=== PATIENT | female | born 1965 | race Caucasian/White ===

== ENCOUNTER 2022-01-06 10:27 | Observation (INO) ==
--- NOTE | 2022-01-06 10:42 | DR.CP ---
HPI Time Seen Time Seen by Provider: 01/06/22 10:42 Complaint Chief Complaint Doctor Comments: 56 y/o female presents with chest pain. Started in the middle of the night. Located lower substernal/epigastric region. Pain is sharp, stabbing, radiates to the back. Nothing makes it better. Nothing makes iot worse. No prior h/o cardiac disease. Does have h/o HTN. Pain is severe. No associated nausea, vomiting, diaphoresis. Feels some dyspnea. Reviewed Nurses Notes Review: Yes Source History Provided: Patient Mode of Arrival Mode of Arrival: Ambulatory PMH PMH Past Medical History: Dyslipidemia and Hypertension Past Surgical History: Yes Surgical History: Cholecystectomy and Hysterectomy Social History Do you use any recreational Drugs:: No ROS Review of Systems Constitutional: No Symptoms Reported Eyes: No Symptoms Reported ENTM: No Symptoms Reported Respiratoy: No Symptoms Reported Cardiovascular: See HPI Gastrointestinal/Abdominal: No Symptoms Reported Genitourinary: No Symptoms Reported Neurological: No Symptoms Reported Musculoskeletal: No Symptoms Reported Integumentary: No Symptoms Reported Hematologic/Lymphatic: No Symptoms Reported Psychiatric: No Symptoms Reported All Other Systems: Reviewed and Negative PE Vitals Vitals: Temperature 97.0 F Pulse Rate 69 Respiratory Rate 8 Blood Pressure [Left Arm] 163/74 Blood Pressure 151/83 O2 Sat by Pulse Oximetry 99 General General Appearance: Alert, Anxious and In Distress Eyes Eye exam: PERRL and EOMI Chest Chest Inspection: Normal Inspection Respiratory Respiratory Exam: Normal Lung Sounds Bilat; negative Accessory Muscle Use or Res piratory Distress Cardiovascular Cardiovascular Exam: Regular Rate, Normal Rhythm and Normal Heart Sounds Abdominal Exam Abdominal Exam: Normal Inspection, Soft and Tenderness (epigastric region, not severe , no guarding or rebound.) Extremities Extremities Exam: Normal Inspection, Full ROM and Other (good distal pulses); negative Edema Back Back Exam: Normal Inspection Neurologic Neurological Exam: Alert, Oriented X3 and CN II-XII Intact; negative Motor Sensory Deficit Psychiatric Psychiatric Exam: Anxious Skin Skin Exam: Warm and Dry MDM Differential Diagnosis Differential Diagnosis: Angina, Aortic Dissection, Chest Wall Pain, Cholelithasis, Myocardial Infarction and Pulmonary Embolus COURSE Treatment Treatment: Pt with lower chest/epigastric pain. W/u initiated. Pt given ASA, NTG without good effect. Pt given IV demerol/zofran. EKG without acute ischemic changes. Labs overall acceptable, except for d-dimer. Will pursue CTA of the chest to r/o PE, dissection. 1243 - pt feeling markedly better after IV analgesia. CTA shows bilateral lower lobe PEs. Recommend admission, will start IV heparin drip. ROR Labs Reviewed Laboratory Results Reviewed?: Yes Result Diagrams: 01/06/22 10:42 01/06/22 10:42 Laboratory: WBC 9.7 X10^3/uL (3.6-10.0) 01/06/22 10:42 RBC 4.44 X10^6/uL (3.5-5.4) 01/06/22 10:42 Hgb 14.0 g/dL (12.0-16.0) 01/06/22 10:42 Hct 40.6 % (36.0-47.0) 01/06/22 10:42 MCV 91.4 fL (80.0-100.0) 01/06/22 10:42 MCH 31.6 pg (27.0-34.0) 01/06/22 10:42 MCHC 34.6 g/dL (33.0-35.0) 01/06/22 10:42 RDW 13.8 % (11.6-16.5) 01/06/22 10:42 Plt Count 279 X10^3/uL (150.0-450.0) 01/06/22 10:42 MPV 6.9 fL (7.4-11.0) L 01/06/22 10:42 Neut % (Auto) 67.6 % (42.0-75.0) 01/06/22 10:42 Lymph % (Auto) 25.2 % (21.0-51.0) 01/06/22 10:42 Hitchcock % (Auto) 5.9 % (0.0-13.0) 01/06/22 10:42 Eos % (Auto) 0.8 % (0.9-2.9) L 01/06/22 10:42 Baso % (Auto) 0.5 % (0.2-1.0) 01/06/22 10:42 Neut # (Auto) 6.6 x10^3/uL (2.2-4.8) H 01/06/22 10:42 Lymph # (Auto) 2.5 X10^3/uL (1.3-2.9) 01/06/22 10:42 Hitchcock # (Auto) 0.6 x10^3/uL (0.3-0.8) 01/06/22 10:42 Eos # (Auto) 0.1 x10^3/uL (0.0-0.2) 01/06/22 10:42 Baso # (Auto) 0.1 X10^3/uL (0.0-0.1) 01/06/22 10:42 Absolute Nucleated RBC 0.0 /100WBC 01/06/22 10:42 PT 12.5 SECONDS (11.8-14.3) 01/06/22 10:42 INR Target Range - 01/06/22 10:42 INR 0.96 (0.8-1.3) 01/06/22 10:42 APTT 21.7 SECONDS (22.9-36.5) L 01/06/22 10:42 PTT Comment - 01/06/22 10:42 D-Dimer 1.82 ug/ml (0.0-0.57) H 01/06/22 10:42 Sodium 141 mmol/L (136-145) 01/06/22 10:42 Corrected Sodium 141 mmol/L (136-145) 01/06/22 10:42 Potassium 3.4 mmol/L (3.5-5.1) L 01/06/22 10:42 Chloride 103 mmol/L (98-107) 01/06/22 10:42 Carbon Dioxide 29.7 mmol/L (21-32) 01/06/22 10:42 BUN 12 mg/dL (7-18) 01/06/22 10:42 Creatinine 0.95 mg/dL (0.55-1.02) 01/06/22 10:42 Est GFR (MDRD) Af Amer > 60 (>60) 01/06/22 10:42 Est GFR (MDRD) Non-Af > 60 (>60) 01/06/22 10:42 Glucose 118 mg/dL (65-99) H 01/06/22 10:42 Calcium 9.3 mg/dL (8.5-10.1) 01/06/22 10:42 Corrected Calcium TNP 01/06/22 10:42 Total Bilirubin 0.50 mg/dL (0.2-1.0) 01/06/22 10:42 AST 60 Units/L (15-37) H 01/06/22 10:42 ALT 66 Units/L (12-78) 01/06/22 10:42 Alkaline Phosphatase 76 Units/L (46-116) 01/06/22 10:42 Creatine Kinase 46 Units/L (26-192) 01/06/22 10:42 Troponin I High Sens 4.5 ng/L (4.0-60.0) 01/06/22 10:42 Total Protein 6.9 g/dL (6.4-8.2) 01/06/22 10:42 Albumin 3.4 g/dL (3.4-5.0) 01/06/22 10:42 Globulin 3.5 g/dL (2.5-4.5) 01/06/22 10:42 Albumin/Globulin Ratio 1.0 Ratio (1.1-2.1) L 01/06/22 10:42 SARS-CoV-2 (PCR) Negative (NEGATIVE) 01/06/22 12:26 Labs acceptable except for elevated d-dimer. EKG Rate: 86 Laura: Normal Rhythm: NSR Block: None Hypertrophy: None ST: Normal Opioid Opioid Risk Tool Age (Cristopher box if 16-45): No History of Preadolescent Sexual Abuse: No Total: 0 Total Score Risk Category: Low Risk Copyright: Ean FLORES predicting aberrant behaviors Discharge Plan Diagnosis Discharge Problem: Bilateral pulmonary embolism Discharge Plan Patient Disposition: 09 ADMITTED INPATIENT Condition: Stable Prescriptions: No Action potassium chloride 10 mEq tablet extended release 1 tab PO QDAY omeprazole 40 mg capsule,delayed release(DR/EC) 1 cap PO QDAY losartan-hydrochlorothiazide 100-25 mg tablet 1 tab PO QDAY estradiol 1 mg tablet 1 tab PO QDAY ezetimibe [Zetia] 10 mg Tablet 10 mg PO DAILY Probiotic 10 billion cell Capsule 10 cell PO DAILY Probiotic 3 billion cell Capsule 3,000 mmu cells PO QDAY Rx Instructions: administer with a meal Health Concerns: Post Hospitalization: new medications and changes needed to prevent readmission or further decline. Pt educated and given instructions on all concerns. Plan of Treatment: Continue with present treatment and follow up plan. Pt is to keep follow up appointment as instructed and take medications as ordered. Orders to Discharge Patient Discharge Orders: Transfer (Routine); Ordered 01/06/22 Ordered By: Lencho Villa Follow ups/Referrals Follow ups/Referrals: [facility],None [Primary Care Provider] - 3 days
[2022-01-06 10:43] VITALS: BMI 27.4
[2022-01-06] MEDS ORDERED: ASPIRIN 81 MG CHEWTAB ONE (10:46)
[2022-01-06] MEDS ORDERED: NITROSTAT ONE (10:46)
[2022-01-06] MEDS ORDERED: NITROSTAT SL PRN (10:50)
[2022-01-06 10:53] LABS: BASOPHILS # (AUTO) 0.1 X10^3/uL (0.0-0.1); BASOPHILS % (AUTO) 0.5 % (0.2-1.0); EOSINOPHILS # (AUTO) 0.1 x10^3/uL (0.0-0.2); EOSINOPHILS % (AUTO) 0.8 % (0.9-2.9); HEMATOCRIT 40.6 % (36.0-47.0); LYMPHOCYTES # (AUTO) 2.5 X10^3/uL (1.3-2.9); LYMPHOCYTES % (AUTO) 25.2 % (21.0-51.0); MEAN CORPUSCULAR HEMOGLOBIN 31.6 pg (27.0-34.0); MEAN CORPUSCULAR HGB CONC 34.6 g/dL (33.0-35.0); MEAN CORPUSCULAR VOLUME 91.4 fL (80.0-100.0); MEAN PLATELET VOLUME 6.9 fL (7.4-11.0); MONOCYTES # (AUTO) 0.6 x10^3/uL (0.3-0.8); MONOCYTES % (AUTO) 5.9 % (0.0-13.0); NEUTROPHILS # (AUTO) 6.6 x10^3/uL (2.2-4.8); NEUTROPHILS % (AUTO) 67.6 % (42.0-75.0); RED BLOOD COUNT 4.44 X10^6/uL (3.5-5.4); RED CELL DISTRIBUTION WIDTH 13.8 % (11.6-16.5); WHITE BLOOD COUNT 9.7 X10^3/uL (3.6-10.0)
[2022-01-06] MEDS ORDERED: ZOFRAN INJ 4 MG VIAL ONE ×2 (11:03→22:50)
[2022-01-06] MEDS ORDERED: DEMEROL INJ ONE (11:03)
[2022-01-06 11:10] LABS: ALANINE AMINOTRANSFERASE 66 Units/L (12-78); ALBUMIN 3.4 g/dL (3.4-5.0); ALKALINE PHOSPHATASE 76 Units/L (46-116); ASPARTATE AMINO TRANSFERASE 60 Units/L (15-37); BLOOD UREA NITROGEN 12 mg/dL (7-18); CALCIUM 9.3 mg/dL (8.5-10.1); CARBON DIOXIDE 29.7 mmol/L (21-32); CHLORIDE 103 mmol/L (98-107); COR NA(FOR HYPERGLY) 141 mmol/L (136-145); CREATINE KINASE 46 Units/L (26-192); CREATININE 0.95 mg/dL (0.55-1.02); SODIUM 141 mmol/L (136-145); TOTAL PROTEIN 6.9 g/dL (6.4-8.2); eGFR NON BLACK RACES > 60 (>60)
[2022-01-06] MEDS ORDERED: DEMEROL INJ IVP ONE (11:10)
[2022-01-06] MEDS ORDERED: ZOFRAN INJ 4 MG VIAL IVP ONE (11:10)
--- NOTE | 2022-01-06 12:10 | RAD ---
Chest AP portableIndication: Substernal chest painCOMPARISONAugust 2021 CT chestFINDINGS: There is no pneumothorax, effusion or dense consolidation. Heart size upper limits normal. Monitoring leads obscure minimal detailIMPRESSIONNo acute chest processElectronically signed by: RAMONITA MENA (Jan 06, 2022 12:09:01)
--- NOTE | 2022-01-06 12:13 | CT ---
CT angiogram chest with contrastIndication: Chest pain and elevated D-dimer. Evaluate for pulmonary embolus.TECHNIQUEHelical images through the chest after IV contrast. Coronal and sagittal reformats provided. MIP images provided.FINDINGSLimited images through the upper abdomen demonstrate no unexpected abnormality. Aorta and branch vessels appear patent where visualized. Review of bone windows demonstrate no destructive osseous lesion.Chest: Chest wall soft tissues are normal. The thyroid gland is normal.Aortic arch and branch vessels are patent without dissection identified. Thyroid gland is normal. Trachea and esophagus are normal. No mediastinal abnormality identified. Heart size within normal limits, without pneumothorax or effusion. No dense consolidation identified.There is thrombus in the right lower lobe segmental pulmonary artery on axial image 75-88 and thrombus seen in left lower lobe branches on axial images 71 through 79.Central airways are patent.IMPRESSION1. Bilateral pulmonary embolic filling defects in the lower lobe segmental pulmonary arteries above.2. No other acute chest process.Electronically signed by: RAMONITA MENA (Jan 06, 2022 12:12:47)
[2022-01-06] MEDS ORDERED: HEPARIN SODIUM INJ 5000 UNITS ONE ×2 (12:29→22:37)
[2022-01-06] MEDS ORDERED: HEPARIN SODIUM IN D5W 25,000 UNITS/500 ML BAG ONE (12:29)
[2022-01-06] MEDS ORDERED: HEPARIN SODIUM INJ 5000 UNITS IVP ONE ×2 (12:43→22:24)
[2022-01-06] MEDS: HEPARIN SODIUM IN D5W 25,000 UNITS/500 ML BAG IV PRN (12:45)
--- NOTE | 2022-01-06 16:06 | VAS ---
HISTORYHistory of pulmonary embolus. Assess for DVT.STUDYLOWER EXT VENOUS, BILATERALCOMPARISONNo relevant prior studies available.TECHNIQUEGrayscale and color Doppler images of the lower extremities.FINDINGSRight lower extremity:Common femoral, femoral, popliteal and posterior tibial veins demonstrate normal compressibility, color Doppler flow, waveforms and augmentation with no filling defects.Soft tissues: UnremarkableLeft lower extremity:Common femoral, femoral, popliteal and posterior tibial veins demonstrate normal compressibility, color Doppler flow, waveforms and augmentation with no filling defects.Soft tissues:UnremarkableIMPRESSIONNo evidence of deep venous thrombus in either lower extremity.Electronically signed by: Albino Wood (Jan 06, 2022 16:04:42)
[2022-01-06] MEDS ORDERED: ZOFRAN INJ 4 MG VIAL IVP PRN (18:18)
[2022-01-06] MEDS ORDERED: DEMEROL INJ IVP PRN (18:18)
[2022-01-06] MEDS: PriLOSEC PO SCH ×2 (20:22→22:06)
[2022-01-06] MEDS: HYZAAR 50/12.5 MG PO SCH (22:06)
[2022-01-06] MEDS: ZOFRAN INJ 4 MG VIAL IVP PRN (22:58)
[2022-01-06] MEDS: DEMEROL INJ IVP PRN (22:58)
[2022-01-06] MEDS ORDERED: POTASSIUM CHL 60 MEQ/NS 0.45% 500 ML IV PRN (23:27)
[2022-01-06] MEDS ORDERED: POTASSIUM CHL 40 MEQ/NS 0.45% 500 ML IV PRN (23:27)
[2022-01-06] MEDS ORDERED: K-RIDER 10 MEQ/NS 100 ML 10 MEQ/100 ML BAG IV PRN (23:27)
[2022-01-06] MEDS ORDERED: KLOR-CON PO PRN (23:27)
[2022-01-06] MEDS ORDERED: MICRO K EXTEN CAP 10 MEQ PO PRN (23:27)
[2022-01-06] MEDS ORDERED: POTASSIUM CHLORIDE LIQ 20 MEQ UDC PO PRN (23:27)
[2022-01-06] MEDS ORDERED: K-DUR TAB 20 MEQ PO ONE (23:43)
[2022-01-06] MEDS: K-DUR TAB 20 MEQ PO PRN (23:54)
[2022-01-07] MEDS ORDERED: NS 100 ML IV 100 ML ONE (00:33)
[2022-01-07] MEDS: MAGNESIUM SULFATE 1 GRAM/100 mL PREMIX 1 G/100 ML BAG IV PRN ×2 (00:42→02:33)
[2022-01-07 05:23] LABS: BASOPHILS # (AUTO) 0.1 X10^3/uL (0.0-0.1); BASOPHILS % (AUTO) 0.6 % (0.2-1.0); EOSINOPHILS # (AUTO) 0.1 x10^3/uL (0.0-0.2); EOSINOPHILS % (AUTO) 0.7 % (0.9-2.9); HEMATOCRIT 39.8 % (36.0-47.0); HEMOGLOBIN 13.6 g/dL (12.0-16.0); LYMPHOCYTES # (AUTO) 3.5 X10^3/uL (1.3-2.9); LYMPHOCYTES % (AUTO) 36.6 % (21.0-51.0); MEAN CORPUSCULAR HEMOGLOBIN 31.5 pg (27.0-34.0); MEAN CORPUSCULAR HGB CONC 34.3 g/dL (33.0-35.0); MEAN PLATELET VOLUME 7.3 fL (7.4-11.0); MONOCYTES # (AUTO) 0.7 x10^3/uL (0.3-0.8); NEUTROPHILS # (AUTO) 5.3 x10^3/uL (2.2-4.8); NEUTROPHILS % (AUTO) 55.1 % (42.0-75.0); RED BLOOD COUNT 4.32 X10^6/uL (3.5-5.4); RED CELL DISTRIBUTION WIDTH 13.9 % (11.6-16.5); WHITE BLOOD COUNT 9.5 X10^3/uL (3.6-10.0)
[2022-01-07 05:24] LABS: ALANINE AMINOTRANSFERASE 52 Units/L (12-78); ALBUMIN 3.2 g/dL (3.4-5.0); ALKALINE PHOSPHATASE 72 Units/L (46-116); ASPARTATE AMINO TRANSFERASE 26 Units/L (15-37); BLOOD UREA NITROGEN 7 mg/dL (7-18); CALCIUM 9.1 mg/dL (8.5-10.1); CARBON DIOXIDE 33.5 mmol/L (21-32); CHLORIDE 102 mmol/L (98-107); COR CA(FOR HYPOALB) 9.7 mg/dL (8.5-10.1); COR NA(FOR HYPERGLY) 143 mmol/L (136-145); CREATININE 0.87 mg/dL (0.55-1.02); MAGNESIUM 2.8 mg/dL (1.7-2.9); SODIUM 142 mmol/L (136-145); TOTAL PROTEIN 6.7 g/dL (6.4-8.2); eGFR NON BLACK RACES > 60 (>60)
[2022-01-07] MEDS ORDERED: TYLENOL 325 MG TAB PO PRN (05:53)
[2022-01-07] MEDS: K-DUR TAB 20 MEQ PO PRN (06:22)
[2022-01-07] MEDS ORDERED: ASPIRIN 81 MG CHEWTAB PO SCH (09:00)
[2022-01-07] MEDS: HYZAAR 50/12.5 MG PO SCH (09:53)
[2022-01-07] MEDS: PriLOSEC PO SCH (09:53)
[2022-01-07] MEDS ORDERED: ULTRAM PO PRN (09:55)
[2022-01-07] MEDS: ZETIA TAB 10 MG PO SCH (09:55)
--- NOTE | 2022-01-07 12:28 | DR.H&P ---
H&P - History & Physical for Day of: H&P Date: 01/06/22 - Chief Complaint Chief Complaint: CHEST PAIN, SOB - History of Present Illness History of Present Illness: IS A 56 YEAR OLD PATIENT OF OURS. SHE PRESENTED TO THE ER WITH COMPLAINTS OF CHEST PAIN AND SHORTNESS OF BREATH. PAIN IS LOCATED IN THE SUBSTERNAL/EPIGASTRIC REGION. SHE DESCRIBES PAIN SHARP AND STABBING. PAIN DOES RADIATE TO THE UPPER BACK. SYMPTOMS ONSET AROUND 5-6 HOURS PRIOR TO ARRIVAL. SHE DENIES A HISTORY OF HTN OR CARDIAC DISEASE. SHE DENIES NAUSEA, VOMITING, OR DIAPHORESIS. HER PMH INCLUDES DYSLIPIDEMIA, HTN, CHOLECYSTECTOMY, AND HYSTERECTOMY. ON ARRIVAL, VITALS WERE: 97.0-86-20-99%-149/86. LABS WERE OBTAINED. WBC 9.7, HGB 14.0, HCT 40.6, PLT COUNT 279, D-DIMER 1.82, SODIUM 141, POTASSIUM 3.4, CHLORIDE 103, BUN 12, CREATININE 0.95, GLUCOSE 118, CALCIUM 9.3, TOTAL BILI 0.50, AST 60, ALT 66, ALK PHOS 76, CREATINE KINASE 46, TROPONIN 4.5, TOTAL PROTEIN 6.9, ALBUMIN 3.4. COVID-19 NEGATIVE. EKG WAS OBTAINED AND REVEALED: NSR WITH HR 86. HER CHEST XRAY WAS OBTAINED AND REVEALED: There is no pneumothorax, effusion or dense consolidation. Heart size upper limits normal. Monitoring leads obscure minimal detail. A CHEST CTA WAS OBTAINED AND REVEALED: 1. Bilateral pulmonary embolic filling defects in the lower lobe segmental pulmonary arteries 2. No other acute chest process. VENOUS DOPPLER REVEALED: No evidence of deep venous thrombus in either lower extremity. IN THE ER, SHE WAS GIVEN NITROSTAT 0.4MG SL X 1 AND ASPIRIN 325 MG. PAIN WAS NOT RELIEVED. SHE WAS GIVEN DEMEROL 25MG IV X 1 AND ZOFRAN 4MG IV X 1. PAIN WAS RELIEVED AFTER RECEIVING DEMEROL. SHE WAS ADMITTED TO THE HOSPITAL FOR FURTHER EVALUATION AND TREATMENT OF BILATERAL PULMONARY EMBOLI. SHE WAS STARTED ON A HEPARIN DRIP, DEMEROL 25MG IV Q4H PRN, ZOFRAN 4MG IV Q4H PRN, THE POTASSIUM AND MAGNESIUM PROTOCOLS, ULTRAM 50MG PO Q6H PRN, AND HER HOME MEDICATIONS OF ZETIA, HYZAAR, AND PRILOSEC WERE RESUMED. OTHERWISE, WE PLAN TO FOLLOW-UP WITH AM LABS AND CONTINUE TO MONITOR. TIME SPENT ON CLINICAL ASSESSMENT, REVIWING LABS AND IMAGING, DECISION MAKING, AND DOCUMENTATION GREATER THAN 75 MINUTES. - Past Medical History Past Medical History: Hypertension, Dyslipidemia - Past Surgical History Surgical History: Cholecystectomy, Hysterectomy - Social History Does patient currently use any type of tobacco product: No Have you used tobacco products in the last 12 months: No Type of Tobacco Use: None Does any household member use tobacco: No Alcohol Use: None Drug Use: None - Medications Home Medications: codeine Allergy (Mild, Verified 01/06/22 10:38) NAUSEA morphine Allergy (Mild, Verified 01/06/22 10:38) NAUSEA narcotics Adverse Reaction (Uncoded 01/06/22 10:38) CONTINUE taking the following medications Lactobacillus acidophilus 10 billion cell capsule (Probiotic) 10 cell PO DAILY 01/06/22 [History] estradiol 1 mg tablet 1 tab PO QDAY 01/06/22 [History] ezetimibe 10 mg tablet (Zetia) 10 mg PO DAILY 01/06/22 [History] lactobacillus combination no.4 3 billion cell capsule (Probiotic) 3,000 mmu cells PO QDAY 01/06/22 [History] losartan 100 mg-hydrochlorothiazide 25 mg tablet 1 tab PO QDAY 01/06/22 [History] omeprazole 40 mg capsule,delayed release 1 cap PO QDAY 01/06/22 [History] potassium chloride 10 mEq tablet,extended release 1 tab PO QDAY 01/06/22 [History] - Review of Systems Constitutional: No Symptoms Reported Eyes: No Symptoms Reported ENT: No Symptoms Reported Respiratory: Shortness of Breath Cardiovascular: Chest Pain Gastrointestinal: No Symptoms Reported Genitourinary: No Symptoms Reported Musculoskeletal: No Symptoms Reported Skin: No Symptoms Reported Neurological: No Symptoms Reported - Physical Exam Vital Signs: Temperature 98.0 F Pulse Rate [Bilateral Radial] 94 Pulse Rate 83 Respiratory Rate 22 Blood Pressure [Left Arm] 118/80 Blood Pressure 125/86 O2 Sat by Pulse Oximetry 98 Oriented: Normal Eyes: Normal Ear: Normal Nose: Normal Throat: Normal Respiratory: Clear Throughout Cardiovascular: Normal : Normal Auscultation: Bowel Sounds: Normal Palpation: Normal Tenderness: Normal Skin: Normal Musculoskeletal: Normal Psychiatric: Normal Mood Description: Calm Affect: Normal Speech Pattern: Clear - Assessment/Plan (1) Bilateral pulmonary embolism Status: Acute Plan: HEPARIN IP, DEMEROL 25MG IV Q4H PRN, ZOFRAN 4MG IV Q4H PRN, THE POTASSIUM AND MAGNESIUM PROTOCOLS, ULTRAM 50MG PO Q6H PRN, AND HER HOME MEDICATIONS OF ZETIA, HYZAAR, AND PRILOSEC WERE RESUMED. - Allergies Allergies/Adverse Reactions: Allergies Allergy/AdvReac Type Severity Reaction Status Date / Time codeine Allergy Mild NAUSEA Verified 01/06/22 10:38 morphine Allergy Mild NAUSEA Verified 01/06/22 10:38 narcotics AdvReac Uncoded 01/06/22 10:38
[2022-01-07] MEDS: HEPARIN SODIUM IN D5W 25,000 UNITS/500 ML BAG IV PRN (15:31)
[2022-01-07] MEDS: ZOFRAN INJ 4 MG VIAL IVP PRN (18:02)
[2022-01-07] MEDS: DEMEROL INJ IVP PRN (22:54)
[2022-01-08] MEDS: ZOFRAN INJ 4 MG VIAL IVP PRN (00:32)
[2022-01-08] MEDS: DEMEROL INJ IVP PRN (00:32)
[2022-01-08 05:34] LABS: BASOPHILS % (AUTO) 0.4 % (0.2-1.0); EOSINOPHILS # (AUTO) 0.1 x10^3/uL (0.0-0.2); EOSINOPHILS % (AUTO) 0.8 % (0.9-2.9); HEMATOCRIT 36.7 % (36.0-47.0); HEMOGLOBIN 12.7 g/dL (12.0-16.0); LYMPHOCYTES # (AUTO) 2.1 X10^3/uL (1.3-2.9); LYMPHOCYTES % (AUTO) 27.3 % (21.0-51.0); MEAN CORPUSCULAR HEMOGLOBIN 31.8 pg (27.0-34.0); MEAN CORPUSCULAR HGB CONC 34.7 g/dL (33.0-35.0); MEAN CORPUSCULAR VOLUME 91.5 fL (80.0-100.0); MEAN PLATELET VOLUME 7.9 fL (7.4-11.0); MONOCYTES # (AUTO) 0.6 x10^3/uL (0.3-0.8); MONOCYTES % (AUTO) 8.6 % (0.0-13.0); NEUTROPHILS # (AUTO) 4.7 x10^3/uL (2.2-4.8); NEUTROPHILS % (AUTO) 62.9 % (42.0-75.0); RED BLOOD COUNT 4.01 X10^6/uL (3.5-5.4); RED CELL DISTRIBUTION WIDTH 14.1 % (11.6-16.5); WHITE BLOOD COUNT 7.5 X10^3/uL (3.6-10.0)
[2022-01-08 05:47] LABS: ALANINE AMINOTRANSFERASE 47 Units/L (12-78); ALKALINE PHOSPHATASE 71 Units/L (46-116); ASPARTATE AMINO TRANSFERASE 30 Units/L (15-37); BLOOD UREA NITROGEN 10 mg/dL (7-18); CHLORIDE 99 mmol/L (98-107); COR CA(FOR HYPOALB) 9.8 mg/dL (8.5-10.1); COR NA(FOR HYPERGLY) 139 mmol/L (136-145); CREATININE 0.78 mg/dL (0.55-1.02); SODIUM 138 mmol/L (136-145); TOTAL PROTEIN 6.1 g/dL (6.4-8.2); eGFR NON BLACK RACES > 60 (>60)
[2022-01-08] MEDS ORDERED: PHENERGAN INJ 25 MG IM ONE ×2 (07:31→07:47)
[2022-01-08] MEDS: ELIQUIS PO SCH ×2 (09:20→10:14)
[2022-01-08] MEDS: ZETIA TAB 10 MG PO SCH ×2 (09:21→10:15)
[2022-01-08] MEDS: HYZAAR 50/12.5 MG PO SCH ×2 (09:21→10:14)
[2022-01-08] MEDS: PriLOSEC PO SCH ×2 (09:21→10:14)
[2022-01-08] MEDS ORDERED: FIORICET TAB PO PRN (09:27)
[2022-01-08] MEDS ORDERED: CELEXA ONE (11:52)
[2022-01-08] MEDS ORDERED: CELEXA PO SCH ×2 (12:00)
[2022-01-08] MEDS ORDERED: COLACE CAP 100 MG PO ONE (16:05)
[2022-01-08 16:09] VITALS: BP 101/60
[2022-01-08] MEDS ORDERED: COLACE CAP 100 MG PO SCH (21:00)
== END 2022-01-08 17:20 | disposition home or self-care (01) ==
LOC: ER 10:27 → ICU 10:27
PROVIDERS: ADMIT Internal Medicine; ATTEND Internal Medicine
DX: R51.9 Headache, unspecified; I26.99 Other pulmonary embolism without acute cor pulmonale; R94.31 Abnormal electrocardiogram [ECG] [EKG]; E78.2 Mixed hyperlipidemia; R06.02 Shortness of breath; I10 Essential (primary) hypertension; R07.89 Other chest pain